=== PATIENT | female | born 1935 | race African-American/Black ===

== ENCOUNTER 2017-06-25 09:38 | Emergency (ER) | payer OTHER, MEDICARE, MEDICAID ==
[~2017-06-25] VITALS: Ht 177.8 cm; Wt 90.0 kg
[2017-06-25] MEDS ORDERED: CLOP75TA33 PO (09:44)
[2017-06-25] MEDS ORDERED: ALEN70SO3 PO (09:44)
[2017-06-25 10:47] LABS: BASOPHILS % 0.6 % (0.0-2.0); HEMATOCRIT. 50.5 % (36.0-48.0); HEMOGLOBIN. 16.2 g/dL (12.0-16.0); LYMPHOCYTES % 11.4 % (20.0-50.0); MEAN CORPUSCULAR HEMOGLOBIN 27.4 pg (28.0-32.0); MEAN CORPUSCULAR VOLUME 85.3 fL (81.0-99.0); MEAN PLATELET VOLUME 10.5 fl (7.4-10.4); MONOCYTES % 5.3 % (2.0-8.0); NEUTROPHILS % 82.7 % (40.0-76.0); PLATELET 242 x1000/uL (130-400); RED BLOOD CELL COUNT 5.92 mill/uL (4.2-5.4); RED CELL DISTRIBUTION WIDTH 14.1 % (11.6-14.6)
[2017-06-25 10:54] LABS: INR 1.2; PARTIAL THROMBOPLASTIN TIME 26.9 sec (23.4-31.0); PROTHROMBIN TIME 12.7 sec (9.4-11.6)
[2017-06-25 11:07] LABS: CARBON DIOXIDE 25 mEq/L (21-32); CHLORIDE 110 mEq/L (98-107); TROPONIN I 0.23 ng/mL (0.00-0.04)
[2017-06-25 17:19] VITALS: BP 110/80
== END 2017-06-25 17:30 | disposition short-term general hospital (02) ==
LOC: ER 09:50
DX: R55 Syncope and collapse (principal); R05 Cough; R09.81 Nasal congestion; Z86.73 Personal history of transient ischemic attack (TIA), and cerebral infarction without residual deficits
CPT/HCPCS: 36415; 70450; 71010; 80053; 83735; 83880; 84484; 85025; 85610; 85730; 93005; 99285

== ENCOUNTER 2018-06-17 16:57 | Emergency (ER) | payer MEDICARE, OTHER, MEDICAID ==
[~2018-06-17] VITALS: Ht 165.1 cm; Wt 60.0 kg
[~2018-06-17 16:57] MED LIST: ALEN70SO3 PO; CLOP75TA33 PO
[2018-06-17 18:23] LABS: BASOPHILS % 0.9 % (0.0-2.0); HEMATOCRIT. 50.1 % (36.0-48.0); HEMOGLOBIN. 16.2 g/dL (12.0-16.0); LYMPHOCYTES % 17.6 % (20.0-50.0); MEAN CORPUSCULAR HEMOGLOBIN 27.9 pg (28.0-32.0); MEAN PLATELET VOLUME 10.1 fl (7.4-10.4); MONOCYTES % 8.7 % (2.0-8.0); NEUTROPHILS % 72.8 % (40.0-76.0); PLATELET 296 x1000/uL (130-400); RED BLOOD CELL COUNT 5.82 mill/uL (4.2-5.4); RED CELL DISTRIBUTION WIDTH 14.2 % (11.6-14.6)
[2018-06-17 18:28] LABS: CHLORIDE 109 mEq/L (98-107)
[2018-06-17] MEDS ORDERED: SODIUM CHLORIDE 0.9% 500 ML IV ONE (19:00)
[2018-06-17 20:49] LABS: CLARITY URINE CLOUDY (CLEAR); COLOR URINE DARK YELLOW (YELLOW); KETONES URINE TRACE (NEGATIVE); LEUKOCYTE ESTERASE URINE 2+ (NEGATIVE); NITRITE URINE POSITIVE (NEGATIVE); OCCULT BLOOD URINE TRACE (NEGATIVE); PROTEIN URINE 1+ (NEGATIVE); SPECIFIC GRAVITY URINE 1.024 (1.005-1.030)
[2018-06-17 20:50] VITALS: BP 144/70
[2018-06-17] MEDS ORDERED: CEPHALEXIN 250MG CAPSULE PO ONE (21:00)
== END 2018-06-17 21:23 | disposition short-term general hospital (02) ==
LOC: ER 16:57 → EDBEDREQ 17:42 → ER 21:23 → CANBEDREQ 06-18 03:21
DX: R55 Syncope and collapse (principal); E86.0 Dehydration; N39.0 Urinary tract infection, site not specified; I10 Essential (primary) hypertension; Z86.73 Personal history of transient ischemic attack (TIA), and cerebral infarction without residual deficits; Z79.899 Other long term (current) drug therapy
CPT/HCPCS: 36415; 71045; 80053; 81003; 84484; 85025; 93005; 96360; 99285; J7040; 99284

== ENCOUNTER 2024-12-24 20:34 | Emergency (ER) | payer MEDICARE, MEDICAID ==
[~2024-12-24] VITALS: Ht 167.6 cm; Wt 50.0 kg
[~2024-12-24 20:34] MED LIST changes: -ALEN70SO3 PO; +ALEN70SO4 PO
[2024-12-24 20:50] VITALS: O2SAT 100
[2024-12-24 21:05] VITALS: TEMP 36.4
[2024-12-24 21:56] LABS: BASOPHILS % 0.8 % (0.0-2.0); DIFFERENTIAL COMMENT 1; HEMATOCRIT. 35.1 % (36.0-48.0); HEMOGLOBIN. 11.3 g/dL (12.0-16.0); LYMPHOCYTES % 11.6 % (20.0-50.0); MEAN CORPUSCULAR HGB CONC 32.2 g/dL (31.0-37.0); MEAN CORPUSCULAR VOLUME 90.1 fL (81.0-99.0); MEAN PLATELET VOLUME 9.5 fl (7.4-10.4); MONOCYTES % 9.5 % (2.0-8.0); NEUTROPHILS % 78.1 % (40.0-76.0); PLATELET 307 x1000/uL (130-400); RED CELL DISTRIBUTION WIDTH 13.7 % (11.6-14.6); WHITE BLOOD COUNT 12.3 x1000/uL (4.5-11.0)
[2024-12-24 22:00] VITALS: O2SAT 97
[2024-12-24 22:04] LABS: CHLORIDE 100 mEq/L (98-107); POTASSIUM 5.1 mEq/L (3.5-5.1); SODIUM 134 mEq/L (136-145)
[2024-12-24 22:05] LABS: CARBON DIOXIDE 25 mEq/L (21-32)
[2024-12-24 22:06] LABS: CALCIUM 8.5 mg/dL (8.7-10.4)
[2024-12-24 22:10] LABS: CREATININE 0.9 mg/dL (0.6-1.0); GLUCOSE 102 mg/dL (70-105); UREA NITROGEN BLOOD 7 mg/dL (9-23)
[2024-12-24 22:19] LABS: TROPONIN I HIGH SENSITIVITY 66 ng/L (3.0-34)
[2024-12-24 23:04] LABS: BG BASE EXCESS 2.6 mmol/L (-2.0-3.0); BG CARBOXYHEMOGLOBIN 1.2 % (0.5-1.5); BG DEOXYHEMOGLOBIN 7.4 % (0.0-5.0); BG FRACTION INSPIRED OXYGEN 28; BG HCO3 ACT 26.7 mmol/L (21.0-28.0); BG METHEMOGLOBIN 0.3 % (0.5-1.5); BG OXYGEN SATURATION 92.5 % (94.0-98.0); BG OXYHEMOGLOBIN 91.1 % (94.0-98.0); BG PCO2 39.1 mmHg (32.0-45.0); BG PH 7.452 (7.350-7.450); BG PO2 64.5 mmHg (83.0-108.0); BG SAMPLE SITE RIGHT RADIAL; BG TOTAL HEMOGLOBIN 11.5 g/dL (12.0-16.0); BG VENT MODE COOL AEROSOL
[2024-12-25 02:29] VITALS: BP 130/52; PULSE 63; RESP 18; O2SAT 99
== END 2024-12-25 02:30 | disposition home or self-care (01) ==
LOC: ER 20:34
DX: J96.20 Acute and chronic respiratory failure, unspecified whether with hypoxia or hypercapnia (principal); I10 Essential (primary) hypertension; Z86.73 Personal history of transient ischemic attack (TIA), and cerebral infarction without residual deficits; Z88.0 Allergy status to penicillin; Z93.0 Tracheostomy status
CPT/HCPCS: 36415; 36600; 71045; 80048; 82375; 82805; 83880; 84484; 85025; 93005; 94070; 94640; 94664; 99285